=== PATIENT | male | born 1985 | race Caucasian/White ===

== ENCOUNTER → 2021-07-24 | Outpatient (CLI) | payer SELFPAY ==
--- NOTE | 2021-07-25 04:24 | REP ---
INDICATION: ENCOUNTER FOR EXAM FOR ADMISSION TO RESIDENTIAL INSTITUTION COMPARISON: None. TECHNIQUE: AP, lateral, coned-down views of the lumbar spine. FINDINGS: Three views of the lumbosacral spine demonstrate satisfactory alignment and lordosis without acute fracture / compression injury or subluxation. Intervertebral disc spaces and associated lumbar endplates along with facet joints appear relatively age-appropriate. Minimal disc space narrowing at L5-S1 cannot be excluded. IMPRESSION: 1. No acute fracture / compression injury or subluxation. 2. Relatively age-appropriate examination as above. If the patient remains symptomatic consider MRI for further investigation. <Electronically signed by Candelario Venegas > 07/25/21 [id number]
--- NOTE | 2021-07-25 04:25 | REP ---
INDICATION: ENCOUNTER FOR EXAM FOR ADMISSION TO RESIDENTIAL INSTITUTION. COMPARISON: None. TECHNIQUE: AP, lateral, open mouth views of the cervical spine. FINDINGS: Alignment is maintained. Intervertebral and facet joints appear relatively age-appropriate. Very minimal disc space narrowing at C6-7 cannot be excluded. No further significant degenerative changes are appreciated. No evidence for acute fracture/compression injury or subluxation. IMPRESSION: Minimal disc space narrowing at C6-7. <Electronically signed by Candelario Venegas > 07/25/21 042
== END ==
LOC: M PLAIMG 13:29
PROVIDERS: ATTEND Internal Medicine
DX: Z02.2 Encounter for examination for admission to residential institution (principal); M54.2 Cervicalgia; M54.5 Low back pain

== ENCOUNTER → 2022-04-09 | Outpatient (CLI) | payer OTHER | LOC: M PAIN 13:30 | PROVIDERS: ATTEND Nurse Practitioner Family | DX: M54.50 Low back pain, unspecified (principal); G89.29 Other chronic pain; F17.210 Nicotine dependence, cigarettes, uncomplicated; Z87.820 Personal history of traumatic brain injury; Z86.59 Personal history of other mental and behavioral disorders; E66.01 Morbid (severe) obesity due to excess calories; Z68.41 Body mass index [BMI] 40.0-44.9, adult; Z79.899 Other long term (current) drug therapy ==

== ENCOUNTER → 2022-05-20 | Outpatient (CLI) | payer OTHER | LOC: M PAIN 14:15 | PROVIDERS: ATTEND Nurse Practitioner Family | DX: M79.10 Myalgia, unspecified site (principal); Z87.820 Personal history of traumatic brain injury; M54.2 Cervicalgia; M25.551 Pain in right hip; M25.552 Pain in left hip; F41.9 Anxiety disorder, unspecified; F32.A Depression, unspecified; E55.9 Vitamin D deficiency, unspecified; F17.210 Nicotine dependence, cigarettes, uncomplicated; Z79.899 Other long term (current) drug therapy ==

== ENCOUNTER → 2022-11-25 | Outpatient (CLI) | payer OTHER ==
[~2022-11-25] MED LIST: BUPIVACAINE HCL 0.25% 10ML VIAL As Ordered ONE; BUPIVACAINE HCL 0.25% 30ML VIAL As Ordered ONE; NORCO, ANEXSIA 5/325MG TABLET (HYDROcodone/ACETAMINOPHEN) As Ordered ONE; TRIAMCINOLONE ACETONIDE SUSP 40MG/ML 1ML VIAL As Ordered ONE; diazePAM 5MG TABLET As Ordered ONE
== END ==
LOC: M PAIN 15:00
PROVIDERS: ATTEND Anesthesiology
DX: M79.10 Myalgia, unspecified site (principal); G89.29 Other chronic pain; E55.9 Vitamin D deficiency, unspecified; F17.210 Nicotine dependence, cigarettes, uncomplicated; Z87.820 Personal history of traumatic brain injury; Z86.59 Personal history of other mental and behavioral disorders; Z79.899 Other long term (current) drug therapy

== ENCOUNTER 2024-04-09 13:17 | Emergency (ER) | payer OTHER, SELFPAY ==
[~2024-04-09] VITALS: Ht 180.3 cm; Wt 66.3 kg
[2024-04-09] MEDS: MORPHINE 4 MG/ML 1ML VIAL IV ONE (13:55)
[2024-04-09 14:04] LABS: BASO % 0.1 % (0.0-1.0); EOS % 0.1 % (0.0-3.0); HEMATOCRIT 44.7 % (42.0-52.0); HEMOGLOBIN 15.8 g/dl (13.5-17.5); LYMPH # 1.7 10^3/uL (1.5-5.0); LYMPH % 12.6 % (24.0-44.0); MEAN CORPUSCULAR HEMOGLOBIN 33.3 pg (27.0-33.0); MEAN CORPUSCULAR HGB CONC 35.3 g/dl (32.0-36.5); MEAN CORPUSCULAR VOLUME 94.3 fl (80.0-96.0); MONO # 1.2 10^3/uL (0.0-0.8); MONO % 8.9 % (2.0-8.0); NEUTROPHILS # 10.7 10^3/uL (1.5-8.5); NEUTROPHILS % 77.9 % (36.0-66.0); PLATELET COUNT, AUTOMATED 167 10^3/uL (150-450); RED BLOOD COUNT 4.74 10^6/uL (4.30-6.10); WHITE BLOOD COUNT 13.8 10^3/uL (4.0-10.0)
[2024-04-09 14:19] LABS: INR 1.12; PROTHROMBIN TIME 14.1 SECONDS (12.5-14.5)
[2024-04-09 14:34] LABS: LIPASE 29 U/L (12-53)
[2024-04-09 14:35] LABS: CPK CREATINE PHOSPHOKINASE 85 U/L (46-171)
[2024-04-09 14:36] LABS: ALBUMIN 3.8 G/DL (3.2-5.2); ALKALINE PHOSPHATASE 58 U/L (46-116); ALT/SGPT 18 U/L (7.0-40); AST/SGOT < 8 U/L (<34); BILIRUBIN,DIRECT 0.4 MG/DL (<0.4); BILIRUBIN,TOTAL 1.1 MG/DL (0.3-1.2); BLOOD UREA NITROGEN 10 MG/DL (9-23); CALCIUM LEVEL 9.3 MG/DL (8.5-10.1); CARBON DIOXIDE LEVEL 24 MMOL/L (20-31); CHLORIDE LEVEL 105 MMOL/L (98-107); CK-MB VALUE MASS < 1.0 NG/ML (<3.6); CREATININE FOR GFR 0.71 MG/DL (0.70-1.30); GLOMERULAR FILTRATION RATE > 60.0 (>60); GLUCOSE, FASTING 99 MG/DL (60-100); MB/CK RELATIVE INDEX 1.17 (< OR =4); POTASSIUM SERUM 3.9 MMOL/L (3.5-5.1); SODIUM LEVEL 137 MMOL/L (136-145); TOTAL PROTEIN 6.6 G/DL (5.7-8.2)
[2024-04-09 14:38] LABS: THYROID STIMULATING HORMONE 1.488 uIU/ML (0.55-4.78)
[2024-04-09 15:30] LABS: GC DNA AMPLIFICATION NEGATIVE (NEGATIVE)
[2024-04-09 15:36] LABS: CK-MB VALUE MASS < 1.0 NG/ML (<3.6); CPK CREATINE PHOSPHOKINASE 97 U/L (46-171); MB/CK RELATIVE INDEX 1.03 (< OR =4)
[2024-04-09] MEDS ORDERED: HOME MED LIST COMPLETE! XX SCH (15:45)
[2024-04-09] MEDS: LevoFLOXacin IV 750 MG in IV 1 EA IV ONE (15:50)
[2024-04-09] MEDS ORDERED: LEVO1TAB39 PO (15:54)
[2024-04-09 17:25] VITALS: BP 107/59; TEMP 100.3; O2SAT 98
== END 2024-04-09 17:35 | disposition home or self-care (01) ==
LOC: EDBD 13:17 → M ED 13:17
DX: N39.0 Urinary tract infection, site not specified (principal); N45.1 Epididymitis; N45.2 Orchitis; I45.10 Unspecified right bundle-branch block; F41.9 Anxiety disorder, unspecified; F32.A Depression, unspecified; M54.50 Low back pain, unspecified; F17.210 Nicotine dependence, cigarettes, uncomplicated; Z79.899 Other long term (current) drug therapy
CPT/HCPCS: 76870; 80048; 80076; 81001; 82550; 82553; 83690; 84439; 84443; 84484; 85025; 85610; 85730; 87088; 87186; 87810; 87850; 93005; 93041; 93976; 94760; 96365; 96366; 96374; 99285; J1956